=== PATIENT | male | born 1940 | race Caucasian/White ===

== ENCOUNTER → 2018-09-28 | Outpatient (CLI) | payer MEDICARE, OTHER ==
--- NOTE | 2018-09-28 11:34 | US ---
EXAMINATION TYPE: US abdomen complete DATE OF EXAM: 09/28/2018 COMPARISON: NONE CLINICAL HISTORY: Bloating. NO surgeries, NPO EXAM MEASUREMENTS: Liver Length: 19.5 cm Gallbladder Wall: 0.2 cm CBD: 0.3 cm CHD: 0.3 cm Spleen: 11.1 cm Right Kidney: 11.4 x 6.1 x 6.6 cm Left Kidney: 11.6 x 5.2 x 6.1 cm Limited exam due to overlying bowel gas Pancreas: Obscured by bowel gas Liver: Appears enlarged in size. Increased attenuation, decreased visualization of vessels suggesti ve of fatty infiltrate. Unable to determine posterior presence of abnormality due to limited visuali zation Gallbladder: wnl Evidence for sonographic Fernandez's sign: neg CBD: wnl CHD: wnl Spleen: wnl Right Kidney: Cortical renal thinning. No hydronephrosis. Left Kidney: Cortical renal thinning. No hydronephrosis. Upper IVC: Obscured by overlying bowel gas Abd Aorta: Portions obscured by overlying bowel gas, distal only seen The liver is homogenous. The intrahepatic portion of the IVC and proximal abdominal aorta are within normal limits. There is no evidence of cholelithiasis. Common bile duct is unremarkable. The visu alized portions of the pancreas are homogenous. The spleen is unremarkable. Kidneys are symmetric a nd free of hydronephrosis. No renal lesions are seen. IMPRESSION: 1. Although there is suboptimal visualization of the liver findings suggest moderate grade hepatic st eatosis. Correlate with liver function tests. No sonographic evidence of acute cholecystitis or lizzie lithiasis. 2. Bilateral cortical renal thinning, sequela of medical renal disease.
== END | disposition home or self-care (01) ==
LOC: RADUSWWP 10:40
PROVIDERS: ATTEND Family Medicine
DX: N28.89 Other specified disorders of kidney and ureter (principal); R14.0 Abdominal distension (gaseous)
CPT/HCPCS: 76700

== ENCOUNTER → 2022-10-31 | Outpatient (CLI) | payer MEDICARE, OTHER ==
--- NOTE | 2022-11-05 10:32 | US ---
EXAMINATION TYPE: US arterial LE single level DATE OF EXAM: 10/31/2022 12:52 PM CLINICAL HISTORY: I25.10 ashd, I70.213, R20.8. Patient states both legs feels cold History of: Smoker: Previous Hypertension: no Diabetic: no TIA/CVA: no Previous Vascular Surgery: no CAD: yes [place]: yes Vascular Ulcers: no Claudication: no Gangrene: no Doppler Waveforms: Right: Multiphasic Left: Multiphasic Pressure Gradients: Right Brachial Pressure: 113 Left Brachial Pressure: 108 Ankle-Brachial Indices: Right: 1.23 Left: 1.25 Toe Brachial Indices: Right: 0.57 Left: 0.87 IMPRESSION: Slightly diminished right sided TBI consistent with at least mild peripheral arterial d isease in the right foot.
== END | disposition home or self-care (01) ==
LOC: RADUSWWP 12:21
PROVIDERS: ATTEND Family Medicine
DX: I25.10 Atherosclerotic heart disease of native coronary artery without angina pectoris (principal); I70.213 Atherosclerosis of native arteries of extremities with intermittent claudication, bilateral legs; R20.8 Other disturbances of skin sensation
CPT/HCPCS: 93922

== ENCOUNTER 2024-09-20 18:24 | Emergency (ER) | payer MEDICARE ==
[2024-09-20 18:44] VITALS: RESP 18; TEMP 98
--- NOTE | 2024-09-20 19:04 | ED ---
General Adult HPI - General Chief complaint: Psychiatric Symptoms Stated complaint: Mental health eval Time Seen by Provider: 09/20/24 18:27 Source: patient, EMS, RN notes reviewed Mode of arrival: EMS Limitations: no limitations - History of Present Illness Initial comments: Patient is an 83-year-old male present to the emergency department for mental health evaluation. Patient feels depressed and having suicidal thoughts. Patient states this is secondary to his being taken away from him by her daughter. No homicidal thoughts. No hallucinations. No history of similar symptoms previously - Related Data Home Medications Medication Instructions Recorded Confirmed Aspirin 325 mg PO DAILY 06/30/15 07/11/16 Benazepril HCl 40 mg PO DAILY 06/30/15 07/15/16 Cholecalciferol [Vitamin D3] 400 unit PO DAILY 06/30/15 07/15/16 Colesevelam [Welchol] 1,875 mg PO AC-BID 06/30/15 07/15/16 Etodolac [Lodine] 400 mg PO DAILY 06/30/15 07/15/16 Fenofibrate Nanocrystallized 145 mg PO DAILY 06/30/15 07/15/16 [Tricor] Finasteride [Proscar] 5 mg PO HS 06/30/15 07/15/16 Fish Oil/Dha/Epa [Fish Oil 1,200 1 each PO DAILY 06/30/15 07/15/16 mg Fish Oil] Magnesium Tablet 1 tab PO DAILY 06/30/15 07/15/16 Multivitamins, Thera [Theragran] 1 each PO DAILY 06/30/15 07/11/16 Omeprazole 40 mg PO AC-BRKFST 06/30/15 07/15/16 Terazosin [Hytrin] 5 mg PO HS 06/30/15 07/15/16 Allergies Allergy/AdvReac Type Severity Reaction Status Date / Time No Known Allergies Allergy Verified 07/11/16 11:05 Review of Systems ROS Statement: Those systems with pertinent positive or pertinent negative responses have been documented in the HPI. ROS Other: All systems not noted in ROS Statement are negative. 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 EGD WITH DILATION 07/05/15 Past Anesthesia/Blood Transfusion Reactions: Motion Sickness Date of Last Stent Placement:: 2000 Past Psychological History: No Psychological Hx Reported Past Alcohol Use History: Occasional Past Drug Use History: None Reported - Past Family History Father Family Medical History: Cancer Mother Family Medical History: Cancer General Exam Limitations: no limitations General appearance: alert, in no apparent distress Head exam: Present: normocephalic Eye exam: Present: normal appearance Respiratory exam: Present: normal lung sounds bilaterally Cardiovascular Exam: Present: regular rate, normal rhythm GI/Abdominal exam: Present: soft. Absent: distended, tenderness, guarding Extremities exam: Present: normal inspection Neurological exam: Present: alert Psychiatric exam: Present: depressed Skin exam: Present: other (skin Tear left forearm) Course Vital Signs 09/20/24 09/21/24 18:35 01:50 Temperature 98.0 F Pulse Rate 60 64 Respiratory 18 18 Rate Blood Pressure 128/70 120/74 O2 Sat by Pulse 94 L 98 Oximetry EKG Findings - EKG Results: EKG: interpreted by PEREZ, sinus rhythm, normal axis, normal QRS, normal ST/T Medical Decision Making - Medical Decision Making Was pt. sent in by a medical professional or institution (, PA, CORE MACHINE TENDER, urgent care, hospital, or fci...) When possible be specific @ -No Did you speak to anyone other than the patient for history (EMS, parent, family, police, friend...)? What history was obtained from this source @ -No Did you review nursing and triage notes (agree or disagree)? Why? @ -I reviewed and agree with nursing and triage notes Were old charts reviewed (outside hosp., previous admission, EMS record, old EKG, old radiological studies, urgent care reports/EKG's, fci records)? Report findings @ -No old charts were reviewed Differential Diagnosis (chest pain, altered mental status, abdominal pain women, abdominal pain men, vaginal bleeding, weakness, fever, dyspnea, syncope, headache, dizziness, GI bleed, back pain, seizure, CVA, palpatations, mental health, musculoskeletal)? @ -Differential Mental Health Depression, anxiety, bipolar, psychosis, schizophrenia, borderline personality, situational depression, adjustment disorder, behavioral disorder, brain tumor, malingering, substance abuse, encephalopathy, medication reaction, dementia, hypothyroidism, degenerative neurologic disorder, lupus.... This is not meant to be all-inclusive list EKG interpreted by me (3pts min.). @ -As above X-rays interpreted by me (1pt min.). @ -None done CT interpreted by me (1pt min.). @ -None done U/S interpreted by me (1pt. min.). @ -None done What testing was considered but not performed or refused? (CT, X-rays, U/S, labs)? Why? @ -None What meds were considered but not given or refused? Why? @ -None Did you discuss the management of the patient with other professionals (professionals i.e. , PA, CORE MACHINE TENDER, lab, RT, psych nurse, social media community manager, plastic outfitter, teacher, weapons electrical engineering officer, case supervisor)? Give summary @ -Health nurse to evaluate for potential placement Was smoking cessation discussed for >3mins.? @ -No Was critical care preformed (if so, how long)? @ -No Were there social determinants of health that impacted care today? How? (Homelessness, low income, unemployed, alcoholism, drug addiction, tra nsportation, low edu. Level, literacy, decrease access to med. care, m[facility], rehab)? @ -No Was there de-escalation of care discussed even if they declined (Discuss DNR or withdrawal of care, Hospice)? DNR status @ -No What co-morbidities impacted this encounter? (DM, HTN, Smoking, COPD, CAD, Cancer, CVA, ARF, Chemo, Hep., AIDS, mental health diagnosis, sleep apnea, morbid obesity)? @ -None Was patient admitted / discharged? Hospital course, mention meds given and route, prescriptions, significant lab abnormalities, going to OR and other pertinent info. @ -Patient presents with depression. Patient does appear depressed and has suicidal ideation. Patient to be evaluated by mental health for possible placement versus outpatient follow-up. Patient discharged home. Undiagnosed new problem with uncertain prognosis? @ -No Drug Therapy requiring intensive monitoring for toxicity (Heparin, Nitro, Insulin, Cardizem)? @ -No Were any procedures done? @ -No Diagnosis/symptom? @ -Depression Acute, or Chronic, or Acute on Chronic? @ -Acute Uncomplicated (without systemic symptoms) or Complicated (systemic symptoms)? @ -Default Side effects of treatment? @ -No Exacerbation, Progression, or Severe Exacerbation? @ -No Poses a threat to life or bodily function? How? (Chest pain, [place], [place], pneumonia, PE, COPD, DKA, ARF, appy, cholecystitis, CVA, Diverticulitis, Homicidal, Suicidal, threat to staff... and all critical care pts) @ -No Note: Patient was discharged without ER discharge instruction - Lab Data Result diagrams: 09/20/24 19:09/20/24 19:22 Lab Results 09/20/24 09/20/24 09/20/24 Range/Units 19:22 19:22 20:13 WBC 8.6 (3.8-10.6) k/uL RBC 4.44 (4.30-5.90) m/uL Hgb 14.5 (13.0-17.5) gm/dL Hct 44.1 (39.0-53.0) % MCV 99.3 (80.0-100.0) fL MCH 32.7 (25.0-35.0) pg MCHC 32.9 (31.0-37.0) g/dL RDW 12.9 (11.5-15.5) % Plt Count 210 (150-450) k/uL MPV 7.5 Neutrophils % 66 % Lymphocytes % 24 % Monocytes % 6 % Eosinophils % 2 % Basophils % 1 % Neutrophils # 5.7 (1.3-7.7) k/uL Lymphocytes # 2.1 (1.0-4.8) k/uL Monocytes # 0.5 (0-1.0) k/uL Eosinophils # 0.1 (0-0.7) k/uL Basophils # 0.1 (0-0.2) k/uL Sodium 143 (137-145) mmol/L Potassium 4.0 (3.5-5.1) mmol/L Chloride 110 H (98-107) mmol/L Carbon Dioxide 25 (22-30) mmol/L Anion Gap 8 mmol/L BUN 10 (9-20) mg/dL Creatinine 0.72 (0.66-1.25) mg/dL Est GFR (CKD-EPI)AfAm >90 (>60 ml/min/1.73 sqM) Est GFR (CKD-EPI)NonAf 87 (>60 ml/min/1.73 sqM) Glucose 106 H (74-99) mg/dL Calcium 9.0 (8.4-10.2) mg/dL Urine Color Colorless Urine Appearance Clear (Clear) Urine pH 6.0 (5.0-8.0) Ur Specific Strat[place] 1.003 (1.001-1.035) Urine Protein Negative (Negative) Urine Glucose (UA) Negative (Negative) Urine Ketones Negative (Negative) Urine Blood Negative (Negative) Urine Nitrite Negative (Negative) Urine Bilirubin Negative (Negative) Urine Urobilinogen <2.0 (<2.0) mg/dL Ur Leukocyte Esterase Negative (Negative) Urine Opiates Screen Not Detected (NotDetected) Ur Oxycodone Screen Not Detected (NotDetected) Urine Methadone Screen Not Detected (NotDetected) Ur Barbiturates Screen Not Detected (NotDetected) U Tricyclic Antidepress Not Detected (NotDetected) Ur Phencyclidine Scrn Not Detected (NotDetected) Ur Amphetamines Screen Not Detected (NotDetected) U Methamphetamines Scrn Not Detected (NotDetected) U Benzodiazepines Scrn Not Detected (NotDetected) Urine Cocaine Screen Not Detected (NotDetected) U Marijuana (THC) Screen Not Detected (NotDetected) Disposition Clinical Impression: Depression Disposition: HOME SELF-CARE Condition: Good Is patient prescribed a controlled substance at d/c from ED?: No Referrals: Nonstaff,Physician [Primary Care Provider] - 1-2 days
[2024-09-20 19:45] LABS: Basophils # (A) 0.1 k/uL (0-0.2); Basophils % (A) 1 %; Eosinophils # (A) 0.1 k/uL (0-0.7); Eosinophils % (A) 2 %; HCT 44.1 % (39.0-53.0); HGB 14.5 gm/dL (13.0-17.5); Lymphocytes # (A) 2.1 k/uL (1.0-4.8); Lymphocytes % (A) 24 %; MCH 32.7 pg (25.0-35.0); MCHC 32.9 g/dL (31.0-37.0); MCV 99.3 fL (80.0-100.0); Mean Platelet Volume 7.5; Monocytes # (A) 0.5 k/uL (0-1.0); Monocytes % (A) 6 %; Neutrophils # (A) 5.7 k/uL (1.3-7.7); Neutrophils % (A) 66 %; Platelet Count 210 k/uL (150-450); RBC 4.44 m/uL (4.30-5.90); RDW 12.9 % (11.5-15.5); WBC 8.6 k/uL (3.8-10.6)
[2024-09-20 19:58] LABS: African American GFR (CKD) >90 (>60 ml/min/1.73 sqM); Anion Gap 8 mmol/L; Blood Urea Nitrogen 10 mg/dL (9-20); Carbon Dioxide 25 mmol/L (22-30); Chloride 110 mmol/L (98-107); Glucose 106 mg/dL (74-99); Non-African American GFR(CKD) 87 (>60 ml/min/1.73 sqM); Sodium 143 mmol/L (137-145)
[2024-09-20] MEDS: DIPH,PERTUS(ACELL)TETVAC-LF 0.5 ML VIAL IM ONE (20:11)
[2024-09-20 20:37] LABS: Appearance,Urine Clear (Clear); Bilirubin,Urine Negative (Negative); Blood,Urine Negative (Negative); Color,Urine Colorless; Glucose,Urine (UA) Negative (Negative); Ketones,Urine Negative (Negative); Leukocyte Esterase,Urine Negative (Negative); Nitrite,Urine Negative (Negative); Protein,Urine Negative (Negative); Specific Gravity,Urine 1.003 (1.001-1.035); Urobilinogen,Urine <2.0 mg/dL (<2.0)
[2024-09-20 20:49] LABS: Amphetamine Screen,Urine Not Detected (NotDetected); Barbiturate Screen,Urine Not Detected (NotDetected); Benzodiazepines Screen,Urine Not Detected (NotDetected); Cocaine Screen,Urine Not Detected (NotDetected); Methadone Screen, Urine Not Detected (NotDetected); Opiate Screen,Urine Not Detected (NotDetected); Oxycodone Screen, Urine Not Detected (NotDetected); Phencyclidine Screen,Urine Not Detected (NotDetected); Tricyclic Antidepressant,Urine Not Detected (NotDetected); Urn Cannabinoid Scrn Not Detected (NotDetected)
[2024-09-21 01:51] VITALS: BP 120/74; PULSE 64
== END 2024-09-21 01:51 | disposition home or self-care (01) ==
LOC: EC 18:24
DX: S51.812A Laceration without foreign body of left forearm, initial encounter (principal); F32.A Depression, unspecified; Z23 Encounter for immunization; X58.XXXA Exposure to other specified factors, initial encounter
CPT/HCPCS: 36415; 80048; 80306; 81003; 82075; 85025; 90471; 90715; 93005; 99285

== ENCOUNTER → 2024-10-19 | Outpatient (CLI) | payer MEDICARE ==
[2024-10-19 16:58] LABS: ALT 31 U/L (10-49); AST 25 U/L (14-35); Albumin/Globulin Ratio 2.22 Ratio (1.60-3.17); Alkaline Phosphatase 43 U/L (41-126); BUN/Creat Ratio 16.78 Ratio (12.00-20.00); Bilirubin, Conjugated <0.20 mg/dL (0.20-0.40); Bilirubin,Unconjugated >0.30 mg/dL (0.20-1.00); Blood Urea Nitrogen 15.1 mg/dL (9.0-27.0); Chloride 109 mmol/L (96-109); Globulin 1.8 g/dL (1.6-3.3); Glucose 182 mg/dL (70-110); Potassium 3.9 mmol/L (3.5-5.5); Sodium 142 mmol/L (135-145); Total Bilirubin 0.5 mg/dL (0.3-1.2); Total Protein 5.8 g/dL (6.2-8.2)
[2024-10-19 20:48] LABS: C-Peptide 8.17 ng/mL (0.81-3.85)
== END | disposition home or self-care (01) ==
LOC: LABWHC1 11:07
PROVIDERS: ATTEND Psychiatry & Neurology Neurology
DX: G31.84 Mild cognitive impairment of uncertain or unknown etiology (principal)
CPT/HCPCS: 36415; 80048; 80076; 82140; 82306; 82330; 82607; 84207; 84443; 84681; 86592

== ENCOUNTER 2024-10-30 08:43 | Emergency (ER) | payer MEDICARE ==
[2024-10-30 09:04] VITALS: PULSE 0; RESP 0
--- NOTE | 2024-10-30 10:31 | ED ---
General Adult HPI - General Chief complaint: Cardiac Arrest/CPR Stated complaint: fall Time Seen by Provider: 10/30/24 08:43 Source: EMS, RN notes reviewed, old records reviewed Mode of arrival: EMS - History of Present Illness Initial comments: Patient is an 84-year-old male who presents emergency department in cardiac arrest. Patient originally was called by EMS for a fall at home with chest pain. Patient apparently had a seizure-like activity on the way to the hospital he was given Versed. Vitals were stable and he still had pulses per EMS in the rig. By the time they transferred him over to a bed in trauma bay 1, patient was connected to the monitor and he had no pulse. ACLS protocol was immediately started upon arrival. Patient was unable to provide any additional details to myself as he was in cardiac arrest upon presentation. EMS stated that patient had chest pain prior to arrival. Unable to provide additional information. Presents for further evaluation at this time.Based on chart, past medical history includes CAD, hypertension, GERD, [place].Patient does not meet trauma activation. Patient did fall but he told EMS he was from the chest pain. No blood thinners. No obvious injuries at this time. Presents as a cardiac arrest. - Related Data Home Medications Medication Instructions Recorded Confirmed Aspirin 325 mg PO DAILY 06/30/15 07/11/16 Benazepril HCl 40 mg PO DAILY 06/30/15 07/15/16 Cholecalciferol [Vitamin D3] 400 unit PO DAILY 06/30/15 07/15/16 Colesevelam [Welchol] 1,875 mg PO AC-BID 06/30/15 07/15/16 Etodolac [Lodine] 400 mg PO DAILY 06/30/15 07/15/16 Fenofibrate Nanocrystallized 145 mg PO DAILY 06/30/15 07/15/16 [Tricor] Finasteride [Proscar] 5 mg PO HS 06/30/15 07/15/16 Fish Oil/Dha/Epa [Fish Oil 1,200 1 each PO DAILY 06/30/15 07/15/16 mg Fish Oil] Magnesium Tablet 1 tab PO DAILY 06/30/15 07/15/16 Multivitamins, Thera [Theragran] 1 each PO DAILY 06/30/15 07/11/16 Omeprazole 40 mg PO AC-BRKFST 06/30/15 07/15/16 Terazosin [Hytrin] 5 mg PO HS 06/30/15 07/15/16 Allergies Allergy/AdvReac Type Severity Reaction Status Date / Time No Known Allergies Allergy Verified 07/11/16 11:05 Review of Systems ROS Statement: Those systems with pertinent positive or pertinent negative responses have been documented in the HPI. ROS Other: All systems not noted in ROS Statement are negative. 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 EGD WITH DILATION 07/05/15 Past Anesthesia/Blood Transfusion Reactions: Motion Sickness Date of Last Stent Placement:: 2000 Past Psychological History: No Psychological Hx Reported Past Alcohol Use History: Occasional Past Drug Use History: None Reported - Past Family History Father Family Medical History: Cancer Mother Family Medical History: Cancer General Exam - General Exam Comments Initial Comments: General: Unresponsive HEAD: Normal with no signs of head trauma. Negative Alford sign. Negative raccoon eyes. EYES: Pupils are fixed, approximately 3 mm. ENT: Hearing grossly intact, normal oropharynx. Trachea is midline. RESPIRATORY: Clear breath sounds both [id number] C/V: Pulseless ABD: Abd is soft, nontender, nondistended EXT: Normal range of motion, no obvious deformity. No obvious deformity or injury. Pelvis is stable. SKIN: Skin tear over left elbow. NEURO: Unresponsive Course Vital Signs 10/30/24 08:58 Pulse Rate 0 L Respiratory 0 L Rate O2 Sat by Pulse 0 L Oximetry Medical Decision Making - Medical Decision Making Was pt. sent in by a medical professional or institution (, PA, DIRECTOR MEDICAL ECONOMICS, urgent care, hospital, or senior care...) When possible be specific @ -No Did you speak to anyone other than the patient for history (EMS, parent, family, police, friend...)? What history was obtained from this source @ -Spoke with patient's daughter, Callie who lives in [place]. Updated her on the status of the patient and she expressed understanding that the patient is . She understands the patient after numerous rounds of CPR here in the hospital over 30 minutes. Did you review nursing and triage notes (agree or disagree)? Why? @ -I reviewed and agree with nursing and triage notes Were old charts reviewed (outside hosp., previous admission, EMS record, old EKG, old radiological studies, urgent care reports/EKG's, senior care records)? Report findings @ -Old charts reviewed confirming patient's past medical history. Differential Diagnosis (chest pain, altered mental status, abdominal pain women, abdominal pain men, vaginal bleeding, weakness, fever, dyspnea, syncope, headache, dizziness, GI bleed, back pain, seizure, CVA, palpatations, mental health, musculoskeletal)? @ -Cardiac arrest, ACS, ventricular fibrillation arrest, seizure. This list is not all inclusive. EKG interpreted by me (3pts min.). @ -None done X-rays interpreted by me (1pt min.). @ -None done CT interpreted by me (1pt min.). @ -None done U/S interpreted by me (1pt. min.). @ -None done What testing was considered but not performed or refused? (CT, X-rays, U/S, labs)? Why? @ -None What meds were considered but not given or refused? Why? @ -None Did you discuss the management of the patient with other professionals (professionals i.e. , PA, DIRECTOR MEDICAL ECONOMICS, lab, RT, psych nurse, social worker assistant, geotechnical department manager, teacher, signals officer, patient case coordinator)? Give summary @ -No Was smoking cessation discussed for >3mins.? @ -No Was critical care preformed (if so, how long)? @ -Yes, 35 minutes Were there social determinants of health that impacted care today? How? (Homelessness, low income, unemployed, alcoholism, drug addiction, nava sportation, low edu. Level, literacy, decrease access to med. care, custodial, rehab)? @ -No Was there de-escalation of care discussed even if they declined (Discuss DNR or withdrawal of care, Hospice)? DNR status @ -No What co-morbidities impacted this encounter? (DM, HTN, Smoking, COPD, CAD, Cancer, CVA, ARF, Chemo, Hep., AIDS, mental health diagnosis, sleep apnea, morbid obesity)? @ -None Was patient admitted / discharged? Hospital course, mention meds given and route, prescriptions, significant lab abnormalities, going to OR and other pertinent info. @ -Patient presents in active cardiac arrest. Originally was called for fall not on blood thinners. Cervical collar is in place but no obvious injuries except for left elbow skin tear. Was complaining of chest pain that caused the fall. He had seizure-like activity on the way here. Apparently had pulses in the rig however by the time he was on the trauma bay bed, patient was pulseless. ACLS protocol immediately started. Patient intubated by myself. Patient presented at 0841 in the room at that time they had him hooked up to the monitor and evaluated he was in cardiac arrest and CPR initiated at 0843. Patient did show V-fib once on the monitor and was defibrillated and given 300 mg of amiodarone. Patient received a total of 9 A of epinephrine, 3 A of calcium, 5 A of bicarb. Patient remained in PEA or asystole throughout other than the 1 time ventricular fibrillation. After numerous rounds of ACLS, after discussion with the resuscitation team, we both agree that further resuscitation is futile. I did speak with the patient's daughter, Callie mid resuscitation and she expressed understanding and I will update her on the final outcome of resuscitation. At this time, as patient remains in asystole and PEA, resus citation will be terminated as further resuscitation is futile after 32 minutes.. Time of called at 0915. I updated patient's daughter, Callie who expressed understanding that the patient . I spoke with the medical education manager, and medical education manager number is [phone]. I spoke with the patient's PCP, Dr. Mendosa who expressed understanding that the patient has . Patient is . Undiagnosed new problem with uncertain prognosis? @ -No Drug Therapy requiring intensive monitoring for toxicity (Heparin, Nitro, Insulin, Cardizem)? @ -No Were any procedures done? @ -Intubation Diagnosis/symptom? @ -Cardiac arrest, ventricular fibrillation, fall, resulting in Acute, or Chronic, or Acute on Chronic? @ -Acute Uncomplicated (without systemic symptoms) or Complicated (systemic symptoms)? @ -Complicated Side effects of treatment? @ -No Exacerbation, Progression, or Severe Exacerbation? @ -No Poses a threat to life or bodily function? How? (Chest pain, [place], [place], pneumonia, PE, COPD, DKA, ARF, appy, cholecystitis, CVA, Diverticulitis, Homicidal, Suicidal, threat to staff... and all critical care pts) @ -Yes, resulted in Critical Care Time Critical Care Time: Yes Total Critical Care Time: 35 Disposition Clinical Impression: Cardiac arrest, Ventricular fibrillation, , Fall Disposition: Referrals: Aamir Gibbs [Primary Care Provider] - 1-2 days Time of Disposition: 09:15 Preliminary Cause of : cardiopulmonary arrest
--- NOTE | 2024-10-30 16:19 | ED ---
Disposition Clinical Impression: Cardiac arrest, Ventricular fibrillation, , Fall Disposition: Referrals: Aamir Gibbs [Primary Care Provider] - 1-2 days Time of Disposition: 09:15 Preliminary Cause of : cardiopulmonary arrest Procedures - Intubation Laryngoscope: other (glidescope) Size: 4 ET Tube Size: 7.5 Tube Secured Depth (cm): 25 Tube Secured Location: teeth Tube Placement Confirmation: visualized tube passing through cords, equal breath sounds bilaterally, no breath sounds over epigastrium, confirmation by capnometry Patient Tolerated Procedure: well
== END 2024-10-30 19:29 | disposition expired ==
LOC: EC 08:43
DX: I46.9 Cardiac arrest, cause unspecified (principal); I49.01 Ventricular fibrillation; W18.30XA Fall on same level, unspecified, initial encounter
CPT/HCPCS: 31500; 92950; 99291